=== PATIENT | male | born 1955 | race African-American/Black ===

== ENCOUNTER 2016-06-21 11:25 | Emergency (ER) | payer OTHER ==
[2016-06-21 12:19] LABS: #Basophils 0.1 thou/uL (0.0-0.2); #Eosinphils 0.1 thou/uL (0.0-0.7); #Lymphocytes 1.2 thou/uL (1.20-3.40); #Monocytes 0.4 thou/uL (0.11-0.59); #Neutrophils 9.9 thou/uL (1.40-6.50); %Basophils 0.6 % (0.0-1.0); %Lymphocytes 10.5 % (21.0-51.0); %Monocytes 3.6 % (0.0-10.0); Mean Platelet Volume 5.9 fL (7.4-10.4); Red Blood Cell (RBC) Count 5.86 mill/uL (4.70-6.10); White Blood Cell (WBC) Count 11.6 thou/uL (4.8-10.8)
--- NOTE | 2016-06-21 12:20 | CT ---
BRAIN CT WITHOUT IV CONTRAST: Date: 06/21/15 HISTORY: 61-year-old male with left-sided weakness. This is a stroke protocol. FINDINGS: There is fairly extensive intraventricular hemorrhage with some generalized ventricular dilatation, with involvement of the lateral, third, and fourth ventricles. There is a 1.2 cm diameter focus of i ntracranial hemorrhage in the left basal ganglia immediately adjacent to the third ventricle. There is some resultant bilateral hydrocephalus and ventricular dilatation, particularly of the lateral ve ntricles. There are some scattered chronic white matter ischemic changes. No evidence for acute infa rct. IMPRESSION: Left lateral basal ganglia hemorrhage adjacent to the third ventricle with extensive intraventricula r hemorrhage including the lateral, third, and fourth ventricles with some dilatation of the lateral ventricles, evidence for some hydrocephalus. Chronic white matter ischemic change. Slightly asymmet rically prominent left lateral ventricle with focal dilatation of the body portion. Findings discussed with and acknowledged by Dr. Lopez in ER at 1150 hours. CODE CR. POS: [facility]
[2016-06-21 12:26] LABS: Troponin I Less than 0.010 ng/mL (< 0.028)
[2016-06-21 12:27] LABS: Prothrombin Time 13.8 SEC (12.0-14.7)
[2016-06-21 12:28] LABS: ALT (SGPT) 23 U/L (0-55); AST (SGOT) 19 U/L (5-34); Alkaline Phosphatase 110 U/L (40-150); Anion Gap 18 mmol/L (10-20); BUN (Urea Nitrogen) 10 mg/dL (8.4-25.7); Bilirubin, Total 0.5 mg/dL (0.2-1.2); CK (CPK) 215 U/L (30-200); Calc. Creatinine Clearance 0 mL/min (70-130); Calcium 9.8 mg/dL (7.8-10.44); Carbon Dioxide 24 mmol/L (23-31); Chloride 99 mmol/L (98-107); Estimated GFR-MDRD 82; Globulin 4.2 g/dL (2.4-3.5); PTT 31.7 SEC (22.9-36.1); Protein, Total 8.8 g/dL (5.8-8.1)
--- NOTE | 2016-06-21 12:44 | ERRECORD ---
[facility] EMERGENCY RECORD HPI CVA (11:53 MPUR) CHIEF COMPLAINT: Patient presents for evaluation of motor deficits, right arm weakness, left leg weakness. HISTORIAN: History provided by patient, 61 y.o. male who awoke this am with rt sided weakness and inability to get things right. Awoke about 9 am, he presents now for evaluation. Mild headache. QUALITY: Patient is alert and oriented to person, place and time, [place] coma score is 15. TIME COURSE: awoke with sxs. RELIEVED BY: Patient's condition relieved by nothing. RISK FACTORS: CVA/TIA risk factors, Prior CVA / TIA. ACUTE STROKE PROTOCOL: NIH Stroke Score: 6, Confirm time of onset or last seen normal awoke with sxs, pt with intracranial bleed. TPA not indicated. ROS (12:17 MPUR) CONSTITUTIONAL: Historian denies chills, Historian denies fever, Historian denies malaise,. EYES: Historian denies eye redness, Historian denies eye discharge. ENT: Historian denies epistaxis, Historian denies otalgia, Historian denies rhinorrhea, Historian denies sore throat. CARDIOVASCULAR: Historian denies chest pain. RESPIRATORY: Historian denies cough, Historian denies shortness of breath. GI: Historian denies abdominal pain, Historian denies diarrhea, Historian denies nausea, Historian denies vomiting. GENITOURINARY MALE: Historian denies dysuria, Historian denies hematuria, Historian denies urinary frequency, Historian denies urinary urgency. MUSCULOSKELETAL: Historian denies neck pain. SKIN: Historian denies cellulitis, Historian denies rash. NEUROLOGIC: See HPI. ENDOCRINE: Historian denies polydipsia, Historian denies polyuria. PAST MEDICAL HISTORY (11:59 EPIE) MEDICAL HISTORY: Notes: stroke 2006, Past medical history includes history of hyperlipidemia, history of hypertension. MALE SURGICAL HISTORY: shunt in brain to relieve pressure during 2006 stroke. KNOWN ALLERGIES No Known Drug Allergies &a-1R&a+25V*p+0X*[id number]*c202B*c15G*c2P*p-0X&a-25V&a+1R Name: Gil Alfaro : 1955 M6 MedRec: [id number] AcctNum: [id number] Prepared: MonJun 22, 2016 00:35 by Interface Page 1 of 3 pMD [facility] EMERGENCY RECORD CURRENT MEDICATIONS levothyroxine: TABLET : Strength - 50 mcg : ORAL Patient Dose: 50 mg Oral. (11:43 JPAR) amLODIPine: TABLET : Strength - 10 mg : ORAL Patient Dose: 10 mg Oral. (11:44 JPAR) sertraline: TABLET : Strength - 50 mg : ORAL Patient Dose: 50 mg Oral. (11:44 JPAR) atorvastatin: TABLET : Strength - 40 mg : ORAL Patient Dose: 40 mg Oral. (11:45 JPAR) Uloric: TABLET : Strength - 40 mg : ORAL Patient Dose: 40 mg Oral. (11:45 JPAR) VITAL SIGNS VITAL SIGNS: BP: 144/66 (Lying), Pulse: 83 (Regular), Resp: 23 (Non-Labored), O2 sat: 98 on Room Air, Time: 06/21/2016 11:28. (11:28 EPIE) BP: 134/70, Pulse: 74, Resp: 18, Temp: 98.6 ORAL, Pain: 0, O2 sat: 98 on ra, Time: 06/21/2016 12:00. (12:00 EPIE) PHYSICAL EXAM CONSTITUTIONAL: Vital signs reviewed, Patient alert and oriented to person, place and time. (12:14 MPUR) HEAD: Head exam included findings of head atraumatic, normocephalic. (12:14 MPUR) EYES: Pupils equally round and reactive to light, Extraocular muscles intact, Conjunctiva normal. (12:14 MPUR) ENT: Ear exam normal, Nose exam normal, Pharynx exam normal. (12:14 MPUR) NECK: Neck exam included findings of normal range of motion, Trachea midline, no jugular venous distention. (12:14 MPUR) RESPIRATORY CHEST: Respiratory exam included findings of no respiratory distress, Breath sounds clear, No wheezing, No rales, No rhonchi. (12:14 MPUR) CARDIOVASCULAR: Cardiovascular exam included findings of heart rate regular rate and rhythm, Heart sounds normal, normal S1, normal S2, no murmurs. (12:14 MPUR) ABDOMEN MALE: Abdominal exam included findings of abdomen obese, nontender, Bowel sounds decreased, Liver normal, Spleen normal, no distension, no mass, no pulsatile masses, no peritoneal signs. (12:14 MPUR) BACK: Back exam normal. (12:14 MPUR) UPPER EXTREMITY: Motor strength normal, Sensation intact, Radial pulse normal. (12:14 MPUR) LOWER EXTREMITY: Lower extremity exam included findings of &a-1R&a+25V*p+0X*v4441L*c202B*c15G*c2P*p-0X&a-25V&a+1R Name: Gil Alfaro : 1955 M61 MedRec: [id number] AcctNum: [id number] Prepared: MonJun 22, 2016 00:35 by Interface Page 2 of 3 pMD [facility] EMERGENCY RECORD inspection normal, Motor strength normal, Posterior tibial pulse normal. (12:14 MPUR) NEURO: Speech, trouble with expression, dysphasia, Memory normal, Cranial nerves intact, Deep tendon reflexes abnormal, Focal motor deficits include, no cerebellar deficits, no nystagmus. (12:15 MPUR) SKIN: Skin exam included findings of skin warm, dry. (12:14 MPUR) DOCTOR NOTES TEXT: 61 y.o. who awoke from sleep with sxs. Came in by provide vehicle because of problems with functioning. CT shows basal ganglia bleed on lt with extension of bleed to ventricles with secondary hydrocephalus. (12:19 MPUR) CRITICAL CARE: Time spent providing critical care to patient was 30-74 minutes, 45 minutes. (12:19 MPUR) PATIENT STATUS: Patient's status is unchanged since arrival to emergency department. (12:19 MPUR) D/W: Discussed this case with Dr. Naik, the mgmt consultant physician, Discussed case, reason for transfer. (12:19 MPUR) Discussed this case with CARLTON Camejo, the physician who is covering for the primary care physician, Reviewed case , bleed and ETA. (MonJun 22, 2016 00:29 MPUR) PATIENT PLAN: The patient requires a transfer and will be transferred, per physician request, due to availability of specialty care, Transfer form completed. (12:19 MPUR) PROBLEM LIST No recorded problems DIAGNOSIS (12:31 MPUR) FINAL: PRIMARY: Intracranial bleed (nontraumatic), ADDITIONAL: hydrocephalus. PRESCRIPTION No recorded prescriptions DISPOSITION PATIENT: Disposition Type: Transfer, Disposition: Transfer to [facility]. (12:31 SOLE) Patient left the department. (12:35 EPISheri) Gan: RUBY=JENIFER Francois, Venessa KING=JENIFER Potst, [place] MPGAURAV=MD Jessica, Herman &a-1R&a+25V*p+0X*z9034C*c202B*c15G*c2P*p-0X&a-25V&a+1R Name: Gil Alfaro : 1955 M61 MedRec: [id number] AcctNum: [id number] Prepared: MonJun 22, 2016 00:35 by Interface Page 3 of 3 pMD MTDD
--- NOTE | 2016-06-21 12:50 | PICIS ---
[facility] EMERGENCY RECORD TRIAGE (11:34 EPIE) TRIAGE NOTES: Pt states that he passed out yesterday. He was cleared by EMS. Pt reports left side weakness. (11:34 EPIE) PATIENT: NAME: Gil Alfaro, AGE: 61, GENDER: male, : Mon1955, TIME OF GREET: MonJun 21, 2016 11:25, PREFERRED LANGUAGE: Malay, ETHNICITY: Not or , ECODE BILLING MAP: [facility], SSN: [id number], Zip Code: [address], KG WEIGHT: 93.44, PHONE: , , , PERSON ID: [id number], PCP: Desmond BARRERA LUKE. (11:34 EPIE) COMPLAINT: SYNCOPE EPISODE. (11:34 EPIE) ADMISSION: URGENCY: 2 Emergent, ADMISSION SOURCE: Home, TRANSPORT: CAR, BED: TRIAGE. (11:34 EPIE) TRIAGE SCREENING: Patient denies suicidal ideation, Patient denies presence of domestic violence. (11:59 EPIE) TREATMENTS IN PROGRESS: Treatments given Prehospital: none. (11:59 EPIE) PROVIDERS: TRIAGE NURSE: Venessa Francois RN. (11:34 EPIE) VITAL SIGNS: BP 144/66, (Lying), Pulse 83, (Regular), Resp 23, (Non-Labored), O2 Sat 98, on Room Air, Time 06/21/2016 11:28. (11:28 EPIE) KNOWN ALLERGIES No Known Drug Allergies CURRENT MEDICATIONS levothyroxine: TABLET : Strength - 50 mcg : ORAL Patient Dose: 50 mg Oral. (11:43 JPAR) amLODIPine: TABLET : Strength - 10 mg : ORAL Patient Dose: 10 mg Oral. (11:44 JPAR) sertraline: TABLET : Strength - 50 mg : ORAL Patient Dose: 50 mg Oral. (11:44 JPAR) atorvastatin: TABLET : Strength - 40 mg : ORAL Patient Dose: 40 mg Oral. (11:45 JPAR) Uloric: TABLET : Strength - 40 mg : ORAL Patient Dose: 40 mg Oral. (11:45 JPAR) VITAL SIGNS VITAL SIGNS: BP: 144/66 (Lying), Pulse: 83 (Regular), Resp: 23 (Non-Labored), O2 sat: 98 on Room Air, Time: 06/21/2016 11:28. (11:28 EPIE) BP: 134/70, Pulse: 74, Resp: 18, Temp: 98.6 ORAL, Pain: 0, O2 sat: 98 on ra, Time: 06/21/2016 12:00. (12:00 EPIE) NURSING ASSESSMENT: CVA ASSESSMENT TOOL (12:00 EPIE) &a-1R&a+25V*p+0X*o1060A*c202B*c15G*c2P*p-0X&a-25V&a+1R Name: Gil Alfaro : 1955 M61 MedRec: [id number] AcctNum: [id number] Prepared: MonJun 22, 2016 00:41 by Interface Page 1 of 9 pMD [facility] EMERGENCY RECORD CONSTITUTIONAL: Patient arrives, via hospital wheelchair, Unsteady gait, Assistance to cart, History obtained from patient, Patient appears, Patient cooperative, Patient alert, Oriented to person, place and time, Skin warm, Skin dry, Skin normal in color, Mucous membranes pink, Mucous membranes moist, Patient is well-groomed, Pt states that he passed out yesterday. He was cleared by EMS. Pt reports right sided weakness. PAIN: Patient rates pain as 0 out of 10. CVA ASSESSMENT: Pupils equally round and reactive to light, Speech, slurred, slow, Associated with visual changes, per . NIHSS: CVA assessment findings: Level of consciousness: alert, keenly responsive (0), Questions: answers both questions correctly (0), Commands: performs both tasks correctly (0), Best gaze: normal (0), Visual: no visual loss (0), Facial palsy: minor paralysis (1), Motor Left Arm: no drift, arm stays 90/45 degrees for full 10 seconds (0), Motor Right Arm: drift, arm drifts down but does not hit bed or other support (1), Motor left leg: no drift, leg stays at 30 degrees for full five seconds (0), Motor right leg: drift, leg drifts down but does not hit bed or other support (1), Limb ataxia: present in one limb (1), Sensory: normal, no sensory loss (0), Best language: mild to moderate aphasia; some obvious loss of fluency or facility of comprehension without significant limitation on ideas expressed or form of expression. Reduction of speech and/or comprehension, however, makes conversation about provided material difficult or impossible (1), Dysarthria: mild to moderate: patient slurs at least some words and, at worst, can be understood with some difficulty (1), Extinction and Inattention: normal (0), Total score 6. VITAL SIGNS: BP: 134, / 70, Pulse: 74, Resp: 18, Temp: 98.6 ORAL, Pain: 0, O2 sat: 98, on: ra. NURSING ASSESSMENT: DYSPHAGIA SCREENING (12:10 EPIE) SWALLOWING EVALUATION: Dysphagia Assessment findings: does not need frequent suctioning, can manage own secretions, no dense facial weakness, no decreased level of alertness, does not require oxygen by mask, able to maintain oxygen saturation at or above 90%, no history of aspiration pneumonia, no prior kent with residual effects, Patient clear for swallowing evaluation; no positive responses, Swallowing evaluation approved by Dr. Jessica LAWRENCE, Following administration of 3 ounces of water by a cup, patient exhibited no signs or symptoms of aspiration, passed evaluation, Notes: evaluation performed by LANDY BURGESS. NURSING ASSESSMENT: FALL RISK (11:39 EPIE) FALL RISK: Fall risk assessment findings include: History of falls (5), No bed rest greater than 2 days (0), Use of level of consciousness altering agents with mentation or cognitive changes (3), No change in blood pressure (0), Sensory &a-1R&a+25V*p+0X*i6819X*c202B*c15G*c2P*p-0X&a-25V&a+1R Name: Gil Alfaro : 1955 M61 MedRec: [id number] AcctNum: [id number] Prepared: MonJun 22, 2016 00:41 by Interface Page 2 of 9 pMD [facility] EMERGENCY RECORD deficits (1), Impaired mobility (3), Neurologic diagnosis (3), No elimination problems (0), Confusion (3), Total score 18, Fall risk. NURSING PROCEDURE: BEDSIDE TESTING (11:37 EPIE) GLUCOSE: Capillary blood sample, Result (mg/dl) 130. FOLLOW-UP: After procedure, results given to Dr. Jessica LAWRENCE. NURSING PROCEDURE: SENIOR TAX ANALYST (11:37 EPIE) PATIENT IDENTIFIER: Patient actively involved in identification process, Patient's identity verified by patient stating name, Patient's identity verified by hospital ID bracelet. SENIOR TAX ANALYST: Patient placed on cardiac rehabilitation specialist, Patient placed on non-invasive blood pressure monitor, with disposable blood pressure cuff applied, Patient placed on continuous pulse oximetry, Adult/pediatric oxisensor applied. FOLLOW-UP: After procedure, alarms set and on, After procedure, patient tolerating monitoring. NURSING PROCEDURE: EKG CHART (11:34 EPIE) EK lead EKG performed on the left chest, done by Harrison BURGESS, first EKG, Notes: EKG @ 1133. FOLLOW-UP: After procedure, EKG for interpretation given to Dr. Jessica LAWRENCE. NURSING PROCEDURE: IV (12:22 EPIE) IV SITE 1: IV established, to the left hand, using a 20 gauge catheter, in two attempts, IV site prepped with chlroroprep, Saline lock established, Flushed with normal saline (mls): 10, Notes: 2 attempts by Venessa RN with successful attempt. 1 attempt by Paty BURGESS. FOLLOW-UP SITE 1: After procedure, no drainage at IV site, After procedure, no swelling at IV site, After procedure, no redness at IV site. NURSING PROCEDURE: TRANSFER (12:20 EPIE) TRANSFER: Reason for transfer need for specialized care, Diagnosis: hydrocephalus, Accepting institution: [facility], Accepting physician: Heena, Referring physician: Jessica, Transported by urgent ambulance, accompanied by emergency medical services personnel, Report called to receiving facility, Cait BURGESS, Provided opportunity to answer questions, Bed assigned ER to ER, Summary of Care printed, Copy of patient record prepared for receiving facility, Patient consent for transfer signed, Family member contacted. BELONGINGS: Belongings and valuables with patient upon arrival to the Emergency Department include:, Belongings and valuables with patient at time of discharge include:, Belongings remain with patient, Valuables remain with patient. &a-1R&a+25V*p+0X*c6243U*c202B*c15G*c2P*p-0X&a-25V&a+1R Name: Gil Alfaro : 1955 M61 MedRec: [id number] AcctNum: [id number] Prepared: MonJun 22, 2016 00:41 by Interface Page 3 of 9 pMD [facility] EMERGENCY RECORD NURSING PROCEDURE: TRANSPORT TO TESTS (11:34 EPIE) TRANSPORT TO TESTS: Patient transported to CT scan, via cart, Accompanied by x-ray robotic technician. ORDER DETAILS Order Name: SENIOR TAX ANALYST ED, Status: Done, Time: 11:37 06/21/2016, User: RUBY, - Ordered for: MD Lopez Marcus, - Entered by: MD Lopez Marcus - Tue Jun 21, 2016 11:37, - Quantity: 1, Order Name: Cardiac Profile w/CKMB & Troponin - I, Status: Active, Time: 11:37 06/21/2016, User: SOLE, - Ordered for: MD Lopez Marcus, - Entered by: MD Lopez Marcus - Tue Jun 21, 2016 11:37, - Quantity: 1, Order Name: CBC with Differential, Status: Active, Time: 11:37 06/21/2016, User: SOLE, - Ordered for: MD Lopez Marcus, - Entered by: MD Lopez Marcus - Tue Jun 21, 2016 11:37, - Quantity: 1, Order Name: CK (CPK), Status: Active, Time: 11:37 06/21/2016, User: SOLE, - Ordered for: MD Lopez Marcus, - Entered by: MD Lopez Marcus - Tue Jun 21, 2016 11:37, - Quantity: 1, Order Name: Comprehensive Metabolic Panel, Status: Active, Time: 11:37 06/21/2016, User: SOLE, - Ordered for: MD Lopez Marcus, - Entered by: MD Lopez Marcus - Tue Jun 21, 2016 11:37, - Quantity: 1, Order Name: CT Brain WO Con, Status: Active, Time: 11:37 06/21/2016, User: SOLE, - Ordered for: MD Lopez Marcus, - Entered by: MD Lopez Marcus - Tue Jun 21, 2016 11:37, - Quantity: 1, Order Name: CT Brain WO Con, Status: Active, Time: 00:00 06/21/2016, User: SOLE, - Ordered for: MD Lopez Marcus, - Entered by: MD Lopez Marcus - Tue Jun 21, 2016, - Quantity: 1, Order Name: DYSPHAGIA SCREEN, Status: Done, Time: 12:09 06/21/2016, User: RUBY, - Ordered for: MD Lopez Marcus, - Entered by: MD Lopez Marcus - Tue Jun 21, 2016 11:37, - Quantity: 1, Order Name: EKG 12 Lead in Emergency Room, Status: Active, Time: 11:37 06/21/2016, User: SOLE, - Ordered for: MD Lopez Marcus, - Entered by: MD Lopez Marcus - Tue Jun 21, 2016 11:37, &a-1R&a+25V*p+0X*y8274N*c202B*c15G*c2P*p-0X&a-25V&a+1R Name: Gil Alfaro Elia : 1955 M61 MedRec: [id number] AcctNum: [id number] Prepared: MonJun 22, 2016 00:41 by Interface Page 4 of 9 [facility] EMERGENCY RECORD - Quantity: 1, Order Name: ERRT Pulse Oximeter ER, Status: Active, Time: 11:37 06/21/2016, User: SOLE, - Ordered for: MD Lopez Marcus, - Entered by: MD Lopez Marcus - Tue Jun 21, 2016 11:37, - Quantity: 1, Order Name: HOB 30 DEGREES, Status: Done, Time: 11:38 06/21/2016, User: RUBY, - Ordered for: MD Lopez Marcus, - Entered by: MD Lopez Marcus - Tue Jun 21, 2016 11:37, - Quantity: 1, Order Name: NIHSS, Status: Done, Time: 11:59 06/21/2016, User: RUBY, - Ordered for: MD Lopez Marcus, - Entered by: MD Lopez Marcus - Tue Jun 21, 2016 11:37, - Quantity: 1, Order Name: Protime with INR, Status: Active, Time: 11:37 06/21/2016, User: SOLE, - Ordered for: MD Lopez Marcus, - Entered by: MD Lopez Marcus - Tue Jun 21, 2016 11:37, - Quantity: 1, Order Name: PTT, Status: Active, Time: 11:37 06/21/2016, User: SOLE, - Ordered for: MD Lopez Marcus, - Entered by: MD Lopez Marcus - Tue Jun 21, 2016 11:37, - Quantity: 1. HPI CVA (11:53 MPUR) CHIEF COMPLAINT: Patient presents for evaluation of motor deficits, right arm weakness, left leg weakness. HISTORIAN: History provided by patient, 61 y.o. male who awoke this am with rt sided weakness and inability to get things right. Awoke about 9 am, he presents now for evaluation. Mild headache. QUALITY: Patient is alert and oriented to person, place and time, Pomeroy coma score is 15. TIME COURSE: awoke with sxs. RELIEVED BY: Patient's condition relieved by nothing. RISK FACTORS: CVA/TIA risk factors, Prior CVA / TIA. ACUTE STROKE PROTOCOL: NIH Stroke Score: 6, Confirm time of onset or last seen normal awoke with sxs, pt with intracranial bleed. TPA not indicated. ROS (12:17 MPUR) CONSTITUTIONAL: Historian denies chills, Historian denies fever, Historian denies malaise,. EYES: Historian denies eye redness, Historian denies eye discharge. ENT: Historian denies epistaxis, Historian denies otalgia, Historian denies rhinorrhea, Historian denies sore throat. &a-1R&a+25V*p+0X*k4944E*c202B*c15G*c2P*p-0X&a-25V&a+1R Name: Gil Alfaro : 1955 M61 MedRec: [id number] AcctNum: [id number] Prepared: MonJun 22, 2016 00:41 by Interface Page 5 of 9 pMD [facility] EMERGENCY RECORD CARDIOVASCULAR: Historian denies chest pain. RESPIRATORY: Historian denies cough, Historian denies shortness of breath. GI: Historian denies abdominal pain, Historian denies diarrhea, Historian denies nausea, Historian denies vomiting. GENITOURINARY MALE: Historian denies dysuria, Historian denies hematuria, Historian denies urinary frequency, Historian denies urinary urgency. MUSCULOSKELETAL: Historian denies neck pain. SKIN: Historian denies cellulitis, Historian denies rash. NEUROLOGIC: See HPI. ENDOCRINE: Historian denies polydipsia, Historian denies polyuria. PAST MEDICAL HISTORY (11:59 EPIE) MEDICAL HISTORY: Notes: stroke 2006, Past medical history includes history of hyperlipidemia, history of hypertension. MALE SURGICAL HISTORY: shunt in brain to relieve pressure during 2006 stroke. PHYSICAL EXAM CONSTITUTIONAL: Vital signs reviewed, Patient alert and oriented to person, place and time. (12:14 MPUR) HEAD: Head exam included findings of head atraumatic, normocephalic. (12:14 MPUR) EYES: Pupils equally round and reactive to light, Extraocular muscles intact, Conjunctiva normal. (12:14 MPUR) ENT: Ear exam normal, Nose exam normal, Pharynx exam normal. (12:14 MPUR) NECK: Neck exam included findings of normal range of motion, Trachea midline, no jugular venous distention. (12:14 MPUR) RESPIRATORY CHEST: Respiratory exam included findings of no respiratory distress, Breath sounds clear, No wheezing, No rales, No rhonchi. (12:14 MPUR) CARDIOVASCULAR: Cardiovascular exam included findings of heart rate regular rate and rhythm, Heart sounds normal, normal S1, normal S2, no murmurs. (12:14 MPUR) ABDOMEN MALE: Abdominal exam included findings of abdomen obese, nontender, Bowel sounds decreased, Liver normal, Spleen normal, no distension, no mass, no pulsatile masses, no peritoneal signs. (12:14 MPUR) BACK: Back exam normal. (12:14 MPUR) UPPER EXTREMITY: Motor strength normal, Sensation intact, Radial pulse normal. (12:14 MPUR) LOWER EXTREMITY: Lower extremity exam included findings of inspection normal, Motor strength normal, Posterior tibial pulse normal. (12:14 MPUR) &a-1R&a+25V*p+0X*w3579U*c202B*c15G*c2P*p-0X&a-25V&a+1R Name: Gil Alfaro : 1955 M61 MedRec: [id number] AcctNum: [id number] Prepared: MonJun 22, 2016 00:41 by Interface Page 6 of 9 pMD [facility] EMERGENCY RECORD NEURO: Speech, trouble with expression, dysphasia, Memory normal, Cranial nerves intact, Deep tendon reflexes abnormal, Focal motor deficits include, no cerebellar deficits, no nystagmus. (12:15 MPUR) SKIN: Skin exam included findings of skin warm, dry. (12:14 MPUR) EVENTS TRANSFER: Triage to Emergency Triage. (MonJun 21, 2016 11:34 EPIE) Emergency Triage to Emergency Room -02. (11:36 EPIE) Removed from Emergency Emergency Room -02. (12:35 EPIE) DOCTOR NOTES TEXT: 61 y.o. who awoke from sleep with sxs. Came in by provide vehicle because of problems with functioning. CT shows basal ganglia bleed on lt with extension of bleed to ventricles with secondary hydrocephalus. (12:19 MPUR) CRITICAL CARE: Time spent providing critical care to patient was 30-74 minutes, 45 minutes. (12:19 MPUR) PATIENT STATUS: Patient's status is unchanged since arrival to emergency department. (12:19 MPUR) D/W: Discussed this case with Dr. Naik, the station gateman physician, Discussed case, reason for transfer. (12:19 MPUR) Discussed this case with CARLTON Camejo, the physician who is covering for the primary care physician, Reviewed case , bleed and ETA. (MonJun 22, 2016 00:29 MPUR) PATIENT PLAN: The patient requires a transfer and will be transferred, per physician request, due to availability of specialty care, Transfer form completed. (12:19 MPUR) PROBLEM LIST No recorded problems DIAGNOSIS (12:31 MPUR) FINAL: PRIMARY: Intracranial bleed (nontraumatic), ADDITIONAL: hydrocephalus. DISPOSITION PATIENT: Disposition Type: Transfer, Disposition: Transfer to [facility]. (12:31 MPUR) Patient left the department. (12:35 EPIE) PRESCRIPTION No recorded prescriptions IMAGING *MEMORANDUM OF TRANSFER: Image captured from scanner. (12:12 EPIE) CONSENTS: Image captured from scanner. (12:31 EPIE) &a-1R&a+25V*p+0X*a7991B*c202B*c15G*c2P*p-0X&a-25V&a+1R Name: Gil Alfaro : 1955 M61 MedRec: [id number] AcctNum: [id number] Prepared: MonJun 22, 2016 00:41 by Interface Page 7 of 9 pMD [facility] EMERGENCY RECORD *EKG: Image captured from scanner. (12:31 EPIE) *SUPPLY CHARGE SHEET: Image captured from scanner. (12:31 EPIE) STROKE PACKET: Image captured from scanner. (12:34 EPIE) Page 2 added. Image captured from scanner. (12:34 EPIE) Page 3 added. Image captured from scanner. (12:34 EPIE) Page 4 added. Image captured from scanner. (12:34 EPIE) ADMIN (MonJun 22, 2016 00:30 MPUR) DIGITAL SIGNATURE: MD Lopez Marcus. RESULTS LABORATORY: [facility]uc[place]k Collection DT: MonJun 21, 2016 11:41, *Accuchek 130 - H mg/dL, Range (70-110). (11:50 MPUR) PTT Collection DT: MonJun 21, 2016 12:06, See comment below , Anticoagulant? NONE Medical Necessity SUSPECT COAGULOPATHY , PTT 31.7 SEC, Range (22.9-36.1). (12:29 MPUR) Protime with INR Collection DT: MonJun 21, 2016 12:06, See comment below , Anticoagulant? NONE Medical Necessity SUSPECT COAGULOPATHY , Prothrombin Time 13.8 SEC, Range (12.0-14.7), INR-International Normal Ratio 1.0 , ATTENTION: READ CAREFULLY , The, recommended therapeutic ranges for oral anticoagulant treatments are: , , Low Intensity: 1.5 - 2.0 Moderate Intensity: 2.0, - 3.0 High Intensity (1): 2.5 - 3.5 High, Intensity (2): 3.0 - 4.0 CRITICAL: >, 4.0 . (12:29 MPUR) Cardiac Profile w/CKMB & TropI Collection DT: MonJun 21, 2016 12:06, CKMB 2.0 ng/mL, Range (0-6.6), Troponin I Less than 0.010 ng/mL, Range (< 0.028), Reference Range , 0.00 - 0.028 ng/mL Negative 0.029 - 0.29 ng/mL , Indeterminate Greater or Equal to 0.3 ng/mL Strongly suggests MS , . (12:29 MPUR) CBC with Differential Collection DT: MonJun 21, 2016 12:06, *White Blood Cell (WBC) Count 11.6 - H thou/uL, Range (4.8-10.8), Red Blood Cell (RBC) Count 5.86 mill/uL, Range (4.70-6.10), &a-1R&a+25V*p+0X*s8593N*c202B*c15G*c2P*p-0X&a-25V&a+1R Name: Gil Alfaro Elia : 1955 M61 MedRec: [id number] AcctNum: [id number] Prepared: MonJun 22, 2016 00:41 by Interface Page 8 of 9 pMD [facility] EMERGENCY RECORD *Hemoglobin 12.9 - L g/dL, Range (14.0-18.0), Hematocrit 42.0 %, Range (42.0-52.0), *Mean Corpuscular Volume 71.8 - L fl, Range (80.0-94.0), *Mean Corpuscular Hemoglobin 22.0 - L pg, Range (27.0-31.0), *Mean Corpuscular HGB CONC 30.7 - L g/dL, Range (32.0-36.0), RBC Distribution Width 14.2 %, Range (11.5-14.5), Platelet Count 394 thou/uL, Range (130-400), *Mean Platelet Volume 5.9 - L fL, Range (7.4-10.4), *%Neutrophils 85.3 - H %, Range (42.0-75.0), *%Lymphocytes 10.5 - L %, Range (21.0-51.0), %Monocytes 3.6 %, Range (0.0-10.0), %Eosinophils 0.0 %, Range (0.0-10.0), %Basophils 0.6 %, Range (0.0-1.0), *#Neutrophils 9.9 - H thou/uL, Range (1.40-6.50), #Lymphocytes 1.2 thou/uL, Range (1.20-3.40), #Monocytes 0.4 thou/uL, Range (0.11-0.59), #Eosinphils 0.1 thou/uL, Range (0.0-0.7), #Basophils 0.1 thou/uL, Range (0.0-0.2). (12:29 MPUR) Gan: EPIE=JENIFER Francois, Venessa JPAR=JENIFER Potts, Harrison MPUR=MD Jessica, Herman &a-1R&a+25V*p+0X*q8559O*c202B*c15G*c2P*p-0X&a-25V&a+1R Name: Gil Alfaro Elia : 1955 M61 MedRec: [id number] AcctNum: [id number] Prepared: MonJun 22, 2016 00:41 by Interface Page 9 of 9 pMD MTDD
== END 2016-06-21 12:20 | disposition short-term general hospital (02) ==
LOC: NAV ERS 11:25
DX: I62.9 Nontraumatic intracranial hemorrhage, unspecified (principal); G91.9 Hydrocephalus, unspecified; E78.5 Hyperlipidemia, unspecified; I10 Essential (primary) hypertension
CPT/HCPCS: 36416; 70450; 80053; 82553; 84484; 85025; 85610; 85730; 93005; 94760